=== PATIENT | female | born 1970 ===

== ENCOUNTER 2024-03-25 02:31 | Observation (INO) ==
[2024-03-25 03:06] LABS: ABS Basophils 0.1 10^3/uL (0.0-0.1); ABS Eosinophils 0.8 10^3/uL (0.0-0.5); ABS Lymphocytes 2.7 10^3/uL (1.0-4.8); ABS Monocytes 0.8 10^3/uL (0.0-0.9); Eosinophil % 8.8 %; Hematocrit 35.6 % (35-45); Hemoglobin 11.7 g/dL (11.5-14.3); Lymphocyte % 28.1 %; Mean Corpuscular Hemoglobin 24.7 pg (27-33); Mean Corpuscular Hgb Conc 32.8 g/dL (31-36); Mean Corpuscular Volume 75.2 fL (80-97); Mean Platelet Volume 7.1 fL (7.5-11.2); Nucleated Red Blood Cells % 0.1 %/100WBC (0.0-0.8); Platelet Count 318 10^3/uL (150-450); Red Blood Count 4.73 10^6/uL (3.63-4.92); Red Cell Distribution Width 17.3 % (12-17); White Blood Count 9.4 10^3/uL (3.8-11.8)
[2024-03-25 03:49] LABS: ALT 27 U/L (7-52); AST 25 U/L (13-39); Acetaminophen < 15 mcg/mL; Albumin 4.6 g/dL (3.2-5.2); Albumin/Globulin Ratio 1.4 (1-3); Alcohol, S 16 mg/dL (<13); Alkaline Phosphatase 79 U/L (35-149); Anion Gap 7 mmol/L (2-16); Blood Urea Nitrogen 16 mg/dL (6-24); CO2 Carbon Dioxide 28 mmol/L (22-32); Calcium 9.8 mg/dL (8.6-10.3); Chloride 102 mmol/L (101-111); Creatinine, Serum 0.84 mg/dL (0.51-0.95); Globulin 3.3 g/dL (2-4); Glucose 118 mg/dL (70-100); Potassium 4.1 mmol/L (3.5-5.0); Salicylate < 2.50 mg/dL (<30); Sodium 137 mmol/L (135-145); Total Bilirubin 0.8 mg/dL (0.2-1.0); Total Protein 7.9 g/dL (6.4-8.9)
[2024-03-25 10:46] LABS: Urine Appearance Clear; Urine Bilirubin Negative (Negative); Urine Blood Negative (Negative); Urine Color Light-Yellow; Urine Glucose Negative (Negative); Urine Ketones Negative (Negative); Urine Nitrite Negative (Negative); Urine Protein Negative (Negative); Urine Specific Gravity 1.011 (1.002-1.030); Urine Urobilinogen Negative (Negative); Urine pH 6.5 (5.0-8.0)
[2024-03-25 10:48] LABS: Urine Bacteria Absent /HPF (Absent); Urine Red Blood Cell Trace(0-2/hpf) /HPF (0-Trace); Urine Squamous Epithelial Cell Present /HPF (Absent); Urine White Blood Cell Trace(0-5/hpf) /HPF (0-Trace)
[2024-03-25 11:11] LABS: Urine Benzodiazepine Screen None Detected (None Detect); Urine Cannabinoids Screen None Detected (None Detect); Urine Opiates Screen None Detected (None Detect)
[2024-03-25 11:43] VITALS: BP 148/90
== END 2024-03-25 11:41 | disposition left against medical advice (07) ==
LOC: ED 02:31 → EDHOLD 02:31 → SUATTDRO 04:14 → EDHOLD 11:40
PROVIDERS: ADMIT Internal Medicine; ATTEND Internal Medicine